=== PATIENT | female | born 1980 | race Caucasian/White ===

== ENCOUNTER 2025-07-04 13:26 | Emergency (ER) | payer BC, SELFPAY ==
[2025-07-04 13:36] VITALS: BP 115/77
[2025-07-04 15:04] VITALS: BMI 21.2
[2025-07-04 15:06] VITALS: BP 104/73
[2025-07-04 15:25] LABS: Hematocrit 28.0 % (37.0-47.0); Hemoglobin 8.5 g/dL (12.0-16.0); Mean Corp Hgb Conc. 30.4 g/dL (33.0-37.0); Mean Corpuscular Volume 74.5 fL (81.0-99.0); Nucleated Red Blood Cells % 0 %; Platelet Count 347 10^3/uL (130-400); Red Cell Dist. Width 17.6 % (11.5-14.5)
[2025-07-04 15:29] LABS: Urine Character Clear (Clear)
[2025-07-04 15:39] LABS: Urine Red Blood Cell 0-2 /HPF (0-2); Urine Squamous Cell >30 /LPF (Few)
[2025-07-04 15:40] LABS: HCG, Serum Qualitative Screen Negative
[2025-07-04 15:45] LABS: ALT (SGPT) 15 U/L (0-35); AST (SGOT) 18 U/L (14-36); Albumin 4.2 g/dl (3.5-5.0); Alkaline Phosphatase 52 U/L (38-126); Blood Urea Nitrogen 7 mg/dl (7-17); Calcium 9.0 mg/dl (8.4-10.2); Carbon Dioxide 27 mmol/L (22-30); Chloride 105 mmol/L (98-107); Estimated Creatinine Clearance 101 ml/min; Glucose 225 mg/dl (70-99); Lipase 28 U/L (23-300); Potassium 4.1 mmol/L (3.5-5.1); Sodium 134 mmol/L (135-145); Total Protein 6.3 g/dl (6.3-8.2); eGFR > 60.00
--- NOTE | 2025-07-04 15:45 | ED.GENMED ---
Addendum entered and electronically signed by Ceasar Calderón DO 07/04/25 20:01:
Addendum, previously discussed the patient's anemia she states is a chronic issue, as far as her ovarian cyst previously seen by DR French seen [facility] [employer] since his departure from [place]
Original Note:
History of Present Illness
General
Chief Complaint: Abdominal Symptoms
Source: patient and spouse
Exam Limitations: none
Time Seen by Provider: 07/04/25 15:24
Nursing documentation reviewed up to this point in time: agreed with
History of Present Illness
History of Present Illness:
44-year-old female insulin-dependent diabetic for 8 years 4 days of crampy abdominal pain nausea diarrhea no fevers no chest pain just got off her menstrual cycle states this is worse than her typical cramps pain in her mid upper abdomen think she
may have gallstones and never confirmed, no sick contacts, no chest pains
Past History
Past History
ED Past Medical History: IDDM
ED Past Surgical History:
Social History
Tobacco: Non-smoker
Alcohol: Occasional
Drug: None
Personal:
Living: with family
Employment: Employed
Phy Exam
Physical Exam
Physical Exam:
Physical Exam
General: no apparent distress, not acutely ill
Neck: Lips are dry
Heart: s1/s2 regular rate and rhythm, no murmur. equal radial pulses.
Lungs: no acute respiratory distress. clear bilaterally
Abdomen: Mild epigastric tenderness mild tenderness in the left lower
Neuro: alert and oriented. no focal neurological deficits
Skin: no rash
Psychiatric: well kept. interactive and cooperative
Extremities: no edema.
Course
Orders/Labs/Results
Orders:
Orders
07/04/25 15:11
Test Result ONCE
07/04/25 15:16
Complete Blood Count/With Diff Urgent
Comprehensive Metabolic Panel Urgent
HCG, Serum Qualitative Screen Urgent
Comment: Notify provider if positive test present
Lipase Urgent
Urinalysis Reflex To Culture Urgent
Date Specimen was Collected: 07/04/25
Time Specimen was Collected: 15:05
Urine Microscopic Reflex Cult Urgent
07/04/25 15:33
CT Abd/Pel (IV only)-DH only Urgent
Comment:
Reason For Exam: llq pain
HYDROmorphone [Dilaudid] 0.5 mg IV NOW STA
Ondansetron Injectable [Zofran] 4 mg IV NOW STA
US Abdomen Complete/Upper Urgent
Comment:
Reason For Exam: pain
07/04/25 15:39
Electrocardiogram (*1) Urgent
Reason for Study: Abdominal Pain
EKG- Treatment ONCE
07/04/25 15:40
0.9% Sodium Chloride 1000 ml [Nss] 1,000 ml IV BOLUS
07/04/25 17:43
US Pelvis Only (non-obstetric) Urgent
Comment:
Reason For Exam: left ovarian cyst, possible torsion
07/04/25 17:54
0.9% Sodium Chloride 1000 ml [Nss] 1,000 ml IV BOLUS
07/04/25 19:18
Dextrose 50%-Water [Dextrose 50% Syringe] 25 grams .ROUTE .[facility]
Dextrose 50%-Water [Dextrose 50% Syringe] 25 grams IV NOW STA
Abnormal Lab Results
07/04/25 07/04/25 07/04/25
15:16 19:20 19:46
WBC 4.5 L 10^3/uL
(4.8-10.8)
RBC 3.76 L 10^6/uL
(4.20-5.40)
Hgb 8.5 L g/dL
(12.0-16.0)
Hct 28.0 L %
(37.0-47.0)
MCV 74.5 L fL
(81.0-99.0)
MCH 22.6 L pg
(27.0-31.0)
MCHC 30.4 L g/dL
(33.0-37.0)
RDW 17.6 H %
(11.5-14.5)
Absolute Lymphs (auto) 1.0 L 10^3/uL
(1.2-3.4)
Sodium 134 L mmol/L
(135-145)
Glucose 225 H mg/dl
(70-99)
Ur Occult Blood Reflex 3+ A
(Negative)
Urine Bacteria (Reflex) Few A
(Negative)
Urine Albumin (Reflex) 1+ A
(Neg - Trace)
POC Glucose 68 L mg/dl 143 H mg/dl
(70-99) (70-99)
07/04/25 15:16
07/04/25 15:16
Vital Signs
Initial and Last Documented VS:
Initial Vital Signs
Temp Pulse Resp BP Pulse Ox
98.4 F 98 22 115/77 100
07/04/25 13:36 07/04/25 13:36 07/04/25 13:36 07/04/25 13:36 07/04/25 13:36
Last Documented Vital Signs
Temp Pulse Resp BP Pulse Ox
98.8 F 96 23 111/76 100
07/04/25 15:06 07/04/25 19:15 07/04/25 19:15 07/04/25 19:12 07/04/25 18:30
MDM/Problems Addressed
Differential Diagnosis Includes:
Viral syndrome, enteritis biliary colic pancreatitis diverticulitis DKA,
MDM/Problems Addressed:
Abdominal symptoms
Chronic conditions affecting care: DM and Previous abdomnial surgery
Acute Exacerbation and/or Progression of Chronic Illness: DM and Previous abdomnial surgery
*Pulse Oximetry
SaO2: 100
Oxygen Mode of Delivery: Room air
Patient hypoxic: no
*EKG
Interpreted by ED Provider?: Yes
Interpretation: normal
Comparison EKG: no comparison EKG present
Rate: normal
Rhythm: sinus
Ischemia: non-specific ST changes
*Critical Care Note
Total Time (30-74mins, 75-104mins- exclusive of procedures): Not Applicable
Update Note
Update Note:
5:[address] reports noted, will send for dedicated pelvic ultrasound patient and spouse updated
800pm
update
Ultrasound noted, on exam her abdomen is soft nontender no guarding no rebound I do not suspect torsion, will have her follow-up with her [employer], also placed on a bland diet antiemetics,
Did have a transient episode of hypoglycemia suspect due to being n.p.o. while she was here
ED Attending Note
-
Portions of this chart may have been created with voice recognition software.� Occasional wrong word or��sound alike� substitutions may have occurred due to the inherent limitations of voice recognition software.
Discharge Plan
Departure
Patient Disposition: Home (Routine Discharge)
Date of Disposition: 07/04/25
Time of Disposition: 19:53
Patient with high blood pressure during this ER visit?: No
Condition: Good
Discharge Problem:
Ovarian cyst
Instructions: Dehydration, Adult (DC), Nausea and Vomiting, Adult (DC), Ovarian cyst - ED (DC), Abdominal Pain
Prescriptions:
New
ondansetron 4 mg tablet,disintegrating
4 mg PO Q8H PRN (Reason: nausea and vomiting) Qty: 14 0RF
ibuprofen 600 mg tablet
600 mg PO Q6H PRN (Reason: Pain) Qty: 20 0RF
Referrals:
Alethea Ashton CRNP [Family Provider, Family Practice]
Interventions
Interventions:
*Risk Screen - Suicide Last Done: 07/04/25 13:36
*General Assessment Last Done: 07/04/25 13:36
*Neglect/Abuse Screening Last Done: 07/04/25 13:36
*ED- Fall Risk Assessment Last Done: 07/04/25 15:05
*ED COVID-19 Vaccine History Last Done: 07/04/25 15:05
TG-Lfacoa-Qzqeuyaaqe Assessment Last Done: 07/04/25 15:08
Discharge Date and Time
Print Language: BOLIVIAN
[2025-07-04 16:58] VITALS: BP 105/71
[2025-07-04 17:00] VITALS: BP 106/66
[2025-07-04] MEDS: NSS 1000 IV ×2 (17:00→17:59)
[2025-07-04 18:00] VITALS: BP 106/77
[2025-07-04 19:12] VITALS: BP 111/76
[2025-07-04 19:21] LABS: Glucose - Point of Care 68 mg/dl (70-99)
[2025-07-04 19:48] LABS: Glucose - Point of Care 143 mg/dl (70-99)
== END 2025-07-04 20:03 | disposition home or self-care (01) ==
LOC: EMR 13:26
PROVIDERS: EMERGENCY PHYSICIAN Emergency Medicine; FAMILY PHYSICIAN Nurse Practitioner Family
DX: N83.292 Other ovarian cyst, left side (principal); N83.201 Unspecified ovarian cyst, right side; E11.9 Type 2 diabetes mellitus without complications; Z79.4 Long term (current) use of insulin
CPT/HCPCS: 96360; 96361; 99284; 74177; 76700; 76856; 80053; 81003; 81015; 82962; 83690; 84703; 85025; 93005; Q9967